=== PATIENT | female | born 1965 | race Caucasian/White ===

== ENCOUNTER 2017-06-28 20:35 | Emergency (ER) | payer BC ==
[~2017-06-28] VITALS: Ht 157.5 cm; Wt 54.4 kg
[2017-06-28] MEDS ORDERED: TETRACAINE HCL 0.5% OPHT DROP 2 ML BOTTLE ONE (21:09)
[2017-06-28] MEDS ORDERED: FLUORESCEIN SODIUM 1 MG STRIP ONE (21:09)
--- NOTE | 2017-06-28 21:56 | NUR ---
Patient discharged to home in stable conditon. Written and verbal after care instructions given. Patient verbalizes understanding of instructions.
== END 2017-06-28 21:57 | disposition home or self-care (01) ==
LOC: ER 20:36
DX: T15.01XA Foreign body in cornea, right eye, initial encounter (principal); Y92.9 Unspecified place or not applicable
CPT/HCPCS: A4663